=== PATIENT | female | born 2000 | race Hispanic/Latino ===

== ENCOUNTER 2021-11-03 12:47 | Inpatient (IN) | payer MEDICAID, OTHER, SELFPAY ==
[~2021-11-03 12:47] MED LIST: Bupivacaine PF 0.5% 30 ML VIAL ONE
[2021-11-03 13:15] VITALS: BMI 29.2
[2021-11-03] MEDS ORDERED: Ondansetron PF 4 MG/2 ML Vial IVP PRN (17:05)
[2021-11-03] MEDS ORDERED: Diphenoxylate HCl/Atropine Tablet PO PRN (17:05)
[2021-11-03] MEDS ORDERED: NS w/ Oxytocin 30 units 500 ML IV SCH ×2 (17:05)
[2021-11-03] MEDS ORDERED: Butorphanol Tartrate 1 MG/ML VIAL SLOW IVP PRN (17:05)
[2021-11-03] MEDS ORDERED: Misoprostol 200 MCG TAB PR PRN (17:05)
[2021-11-03] MEDS ORDERED: hydrALAZINE 20 MG/ML VIAL SLOW IVP PRN (17:05)
[2021-11-03] MEDS ORDERED: HYDROcodone/Acetaminophen 5/325 mg Tablet PO PRN (17:05)
[2021-11-03] MEDS ORDERED: Carboprost 250 MCG/ML AMP IM PRN (17:05)
[2021-11-03] MEDS ORDERED: Lidocaine 1% (PF) 30 ML VIAL SC PRN (17:05)
[2021-11-03] MEDS ORDERED: Ibuprofen 800 MG TAB PO PRN (17:05)
[2021-11-03] MEDS ORDERED: Methylergonovine 0.2 MG/ML VIAL IM PRN (17:05)
[2021-11-03] MEDS ORDERED: Promethazine HCl 25 MG/ML VIAL IM PRN (17:05)
[2021-11-03] MEDS ORDERED: Acetaminophen 500 MG TAB PO PRN (17:05)
[2021-11-03] MEDS: Lactated Ringer's 1,000 ML IV SCH (17:56)
[2021-11-03 18:15] LABS: Hemoglobin 10.9 g/dL (12.0-15.5); Mean Corpuscular HGB CONC 33.9 g/dL (32.0-36.0); Mean Corpuscular Hemoglobin 28.2 pg (27.0-33.0); Mean Corpuscular Volume 83.4 fl (81.6-98.3); Mean Platelet Volume 10.2 fl (7.4-10.4); Platelet Count 333 10x3/uL (150-450); RBC Distribution Width 12.8 % (11.5-14.5); Red Blood Cell (RBC) Count 3.86 10x6/uL (3.90-5.03); White Blood Cell (WBC) Count 8.5 10x3/uL (3.5-10.5)
[2021-11-03 18:44] LABS: Hep B Surf Ag Non-Reactive S/CO (NonReactive); Syphilis Antibody Nonreactive (Nonreactive); Syphilis Antibody Index 0.06 S/CO (<1.00 Non-Reactive)
[2021-11-03 18:45] LABS: HBSAg Index 0.17 S/CO (0-0.99)
[2021-11-03] MEDS: Misoprostol 100 MCG TAB VAG SCH (19:01)
[2021-11-03 21:09] LABS: SARS-CoV-2 NAA Rapid Test Not Detected (NotDetected)
[2021-11-04] MEDS: Misoprostol 100 MCG TAB VAG SCH (03:13)
[2021-11-04] MEDS ORDERED: Fentanyl 2 mcg/Bup 0.1% Cadd 100 ML ONE (08:58)
[2021-11-04] MEDS ORDERED: Fentanyl 2 mcg/Bupivacaine 0.1% Cassette 100 ML EPIDURAL SCH (09:30)
[2021-11-04] MEDS ORDERED: Naloxone HCl 0.4 mg/ml Vial IVP PRN ×2 (09:30)
[2021-11-04] MEDS ORDERED: Communication Order-Pharmacy FS SCH (09:30)
[2021-11-04] MEDS ORDERED: Lactated Ringer's 500 ML IV PRN (09:30)
[2021-11-04] MEDS ORDERED: Ondansetron PF 4 MG/2 ML Vial IVP PRN ×2 (09:30→19:15)
[2021-11-04] MEDS ORDERED: diphenhydrAMINE 50 MG/ML VIAL IVP PRN (09:30)
[2021-11-04] MEDS ORDERED: Moisturizing Cream (Eucerin) 113 GM JAR TOP PRN (09:30)
[2021-11-04] MEDS ORDERED: Acetaminophen 325 MG TAB PO PRN (09:30)
[2021-11-04] MEDS ORDERED: ePHEDrine Sulfate 50 MG/10 ML VIAL SLOW IVP PRN (09:30)
[2021-11-04] MEDS ORDERED: Promethazine HCl 25 MG/ML VIAL IM PRN ×2 (09:30→19:15)
[2021-11-04] MEDS: Lactated Ringer's 1,000 ML IV SCH ×2 (09:36→15:37)
[2021-11-04 17:07] LABS: RapidComm Collect By HF.CST
[2021-11-04] MEDS ORDERED: diphenhydrAMINE 25 MG CAP PO PRN (19:15)
[2021-11-04] MEDS ORDERED: Milk Of Magnesia 30 ML UDCUP PO PRN (19:15)
[2021-11-04] MEDS ORDERED: HYDROcodone/Acetaminophen 5/325 mg Tablet PO PRN ×2 (19:15)
[2021-11-04] MEDS ORDERED: Lanolin Ointment 7 GM TUBE TOP PRN (19:15)
[2021-11-04] MEDS ORDERED: Boostrix 0.5 ML (Tdap) VIAL IM ONE (19:15)
[2021-11-04] MEDS ORDERED: Benzocaine-Menthol 82.5 ML CAN TOP PRN (19:15)
[2021-11-04] MEDS ORDERED: Bisacodyl 10 MG SUPP PR PRN (19:15)
[2021-11-04] MEDS ORDERED: hydrALAZINE 20 MG/ML VIAL SLOW IVP PRN (19:15)
[2021-11-04] MEDS: Ibuprofen 800 MG TAB PO SCH (21:49)
[2021-11-04] MEDS: Docusate 100 MG CAP PO SCH (21:49)
[2021-11-05] MEDS: Ibuprofen 800 MG TAB PO SCH ×2 (05:54→13:18)
[2021-11-05] MEDS: Misoprostol 100 MCG TAB VAG SCH (06:35)
[2021-11-05] MEDS: Lactated Ringer's 1,000 ML IV SCH (06:35)
[2021-11-05] MEDS: Ferrous Sulfate 325 MG TAB PO SCH ×2 (08:07→14:25)
[2021-11-05] MEDS: Docusate 100 MG CAP PO SCH (08:07)
[2021-11-05] MEDS ORDERED: Prenatal Vitamin 1 TAB PO SCH (09:00)
[2021-11-05 17:20] VITALS: BP 115/70; TEMP 98.4
== END 2021-11-05 19:05 | disposition home or self-care (01) | DRG 807 ==
LOC: EDBD → CSHLD/OP 12:47 → EDBD 18:52 → CSHLD 18:52 → CSHPP 11-04 18:45
PROVIDERS: ADMIT Family Medicine; ATTEND Family Medicine
PROC: 10E0XZZ Delivery of Products of Conception, External Approach (ICD-10-PCS; principal; 2021-11-04)
PROC: 0KQM0ZZ Repair Perineum Muscle, Open Approach (ICD-10-PCS; 2021-11-04)
PROC: 10907ZC Drainage of Amniotic Fluid, Therapeutic from Products of Conception, Via Natural or Artificial Opening (ICD-10-PCS; 2021-11-04)
DX: O36.8130 Decreased fetal movements, third trimester, not applicable or unspecified (principal); Z37.0 Single live birth; Z20.822 Contact with and (suspected) exposure to COVID-19; Z3A.38 38 weeks gestation of pregnancy; O70.1 Second degree perineal laceration during delivery; O69.81X0 Labor and delivery complicated by cord around neck, without compression, not applicable or unspecified
CPT/HCPCS: 36415; 51702; 76819; 82805; 85027; 86780; 86850; 86900; 86901; 87340; 99285; J0595; J2590; J7120; S0020; U0002